=== PATIENT | male | born 1990 | race Caucasian/White ===

== ENCOUNTER → 2019-07-05 | Outpatient (CLI) | payer BC ==
[~2019-07-05] MED LIST: IBU-8800 MG PO
== END | disposition home or self-care (01) ==
LOC: CARD 10:04
DX: I51.7 Cardiomegaly (principal); R00.2 Palpitations; R01.1 Cardiac murmur, unspecified; R00.1 Bradycardia, unspecified

== ENCOUNTER 2019-09-02 14:30 | Emergency (ER) | payer BC ==
[~2019-09-02] VITALS: Ht 187.9 cm; Wt 97.5 kg
[2019-09-02 14:59] LABS: BASO # 0.1 10*3/uL (0.0-0.1); BASO % 0.8 % (0.0-1.0); EOS # 0.3 10*3/uL (0.0-0.4); EOS % 3.1 % (1.0-4.0); HEMATOCRIT 51.6 % (42.0-52.0); LYMPH # 2.9 10*3/uL (1.3-4.4); LYMPH % 33.5 % (27.0-41.0); MEAN CELL VOLUME 89.9 fl (80.0-94.0); MEAN CORPUSCULAR HGB 29.6 pg (27.0-31.0); MEAN CORPUSCULAR HGB CONC 32.9 g/dl (33.0-37.0); MEAN PLATELET VOLUME 10.2 fl (9.6-12.3); MONO # 0.5 10*3/uL (0.1-1.0); MONO % 5.9 % (3.0-9.0); NEUT # 4.9 10*3/uL (2.3-7.9); NEUT % 56.1 % (47.0-73.0); PLATELET COUNT AUTOMATED 231 10*3/uL (130-400); RED BLOOD COUNT 5.74 10*6/uL (4.50-5.90); RED CELL DISTRI WIDTH 11.8 % (0-14.5); WHITE BLOOD COUNT 8.7 10*3/uL (4.8-10.8)
[2019-09-02 15:12] LABS: ALBUMIN 4.5 gm/dl (3.1-4.5); ALKALINE PHOSPHATASE 70 U/L (45-117); BUN 20 mg/dl (7-24); CHLORIDE 106 mmol/L (98-107); CREATININE 0.98 mg/dL (0.70-1.30); LIPASE 84 U/L (73-393); POTASSIUM 4.2 mmol/L (3.5-5.1); SGOT/AST 16 IU/L (3-35); SGPT/ALT 43 U/L (12-78); SODIUM 137 mmol/L (136-145); TOTAL PROTEIN 8.3 gm/dL (6.4-8.2)
[2019-09-02 15:26] LABS: BILIRUBIN NEGATIVE (NEGATIVE); BLOOD NEGATIVE (NEGATIVE); CLARITY CLEAR (CLEAR); COLOR YELLOW (YELLOW); GLUCOSE NEGATIVE (NEGATIVE); KETONE NEGATIVE (NEGATIVE); LEUKO ESTERASE NEGATIVE (NEGATIVE); NITRITE NEGATIVE (NEGATIVE); SPECIFIC GRAVITY 1.025 (1.005-1.030); UROBILINOGEN 0.2 E.U./dl (0.2-1.0)
[2019-09-02 15:31] LABS: BACTERIA TRACE
[2019-09-02] MEDS ORDERED: ZOFRAN4 MG PO (16:43)
[2019-09-02] MEDS ORDERED: FLOMAX0.4 MG PO (16:43)
== END 2019-09-02 16:52 | disposition home or self-care (01) ==
LOC: ED 14:30
PROVIDERS: Nurse Practitioner Family
DX: N20.0 Calculus of kidney (principal)

== ENCOUNTER 2022-01-24 18:21 | Emergency (ER) | payer BC ==
[~2022-01-24] VITALS: Ht 193 cm; Wt 97.5 kg
[~2022-01-24 18:21] MED LIST changes: +FLOMAX0.4 MG PO; +ZOFRAN4 MG PO
[2022-01-24] MEDS ORDERED: COMPAZINE10 M1 PO (21:00)
== END 2022-01-24 21:00 | disposition home or self-care (01) ==
LOC: ED 18:21
DX: G43.909 Migraine, unspecified, not intractable, without status migrainosus (principal)